=== PATIENT | male | born 1980 | race Caucasian/White ===

== ENCOUNTER 2016-12-08 14:13 | Emergency (ER) | payer MEDICAID ==
[~2016-12-08] VITALS: Ht 165.1 cm; Wt 105.3 kg
[2016-12-08 14:21] VITALS: BP 133/71
[2016-12-08 15:04] LABS: BASOPHILS # (AUTO) 0.1 K/uL (0.00-0.22); BASOPHILS % (AUTO) 1.2 % (0.0-2.0); EOSINOPHILS # (AUTO) 0.2 K/uL (0-0.4); EOSINOPHILS % (AUTO) 2.5 % (0.0-4.0); HEMATOCRIT 42.7 % (36-52); HEMOGLOBIN 13.9 g/dL (12.0-18.0); LYMPHOCYTES # (AUTO) 1.9 K/uL (2.0-11.5); MEAN CORPUSCULAR HEMOGLOBIN 27 pg (27-31); MEAN CORPUSCULAR HGB CONC 33 g/dL (33-37); MEAN CORPUSCULAR VOLUME 83 fL (80-94); MONOCYTES # (AUTO) 0.5 K/uL (0.8-1.0); MONOCYTES % (AUTO) 5.5 % (1.7-9.3); NEUTROPHILS # (AUTO) 5.6 K/uL (1.8-7.7); NEUTROPHILS % (AUTO) 67.8 % (42.2-75.2); PLATELET COUNT (AUTO) 306 K/uL (140-450); RED BLOOD CELL COUNT(AUTO) 5.15 MIL/uL (4.20-6.10); WHITE BLOOD COUNT (AUTO) 8.3 K/uL (4.8-10.8)
[2016-12-08 15:10] LABS: APPEARANCE,URINE CLEAR (CLEAR); BILIRUBIN,URINE NEGATIVE (NEGATIVE); BLOOD, URINE NEGATIVE (NEGATIVE); COLOR,URINE YELLOW (YELLOW); LEUKOCYTE ESTERASE ,URINE NEGATIVE (NEGATIVE); NITRITE, URINE NEGATIVE (NEGATIVE); PROTEIN,URINE NEGATIVE (NEGATIVE); UGLUCOSE NEGATIVE (NEGATIVE); UROBILINOGEN,URINE 0.2 EU/dL (0.2 - 1)
[2016-12-08 15:18] LABS: ANION GAP 12.8 (8-16); CALCIUM 8.5 mg/dL (8.5-10.1); CARBON DIOXIDE 26.2 mmol/L (21-32); CREATININE 0.9 mg/dL (0.7-1.3)
[2016-12-08 15:24] LABS: ALBUMIN 3.6 g/dL (3.4-5.0); TOTAL BILIRUBIN 0.2 mg/dL (0.0-1.0); TOTAL PROTEIN, SERUM 7.8 g/dL (6.4-8.2)
--- NOTE | 2016-12-08 17:07 | NUR ---
PATIENT AMBULATED TO ER BED 4.
--- NOTE | 2016-12-08 17:19 | NUR ---
PATIENT PRESENTS TO ED WITH umbilical hernica pain . PT STATES pain worse when bending over . DENIES N/V/D; SKIN IS PINK/WARM/DRY; AAOX4 WITH EVEN AND STEADY GAIT; LUNGS CLEAR BL; HR EVEN AND REGULAR; PT DENIES ANY FEVER, CP, SOB, OR COUGH AT THIS TIME; PATIENT STATES PAIN OF 10/10 AT THIS TIME; VSS; PATIENT POSITIONED FOR COMFORT; HOB ELEVATED; BEDRAILS UP X2; BED DOWN. ER MD MADE AWARE OF PT STATUS.
--- NOTE | 2016-12-08 17:50 | NUR ---
PATIENT BEING EVALUATED BY DR. HSU.
[2016-12-08] MEDS ORDERED: oxyCODONE/APAP 5/325 MG 1 TAB TAB PO ONE (18:00)
--- NOTE | 2016-12-08 18:19 | NUR ---
PT TO CT
--- NOTE | 2016-12-08 18:27 | NUR ---
PT RETURNED TO BED [address]
--- NOTE | 2016-12-08 18:30 | NUR ---
MEDICATION ADMINISTERED ORDERED.
--- NOTE | 2016-12-08 18:39 | NUR ---
CONTINUES TO WAIT FOR DISPO---PT HOLDING CONVERSATION WITH SPOUSE AT BEDSIDE---NO GRIMACE, NO MOAN NO GUARDING ABD----WILL CONTINUE TO OBSERVE FOR PAIN CONTROL
[2016-12-08 19:21] VITALS: BP 131/81
--- NOTE | 2016-12-08 19:22 | NUR ---
Patient discharged with v/s stable. Written and verbal after care instructions given and explained. Patient alert, oriented and verbalized understanding of instructions. Ambulatory with steady gait. All questions addressed prior to discharge. ID band removed. Patient advised to follow up with PMD. Rx of NORCO/IBUPROFEN given. Patient educated on indication of medication including possible reaction and side effects. Opportunity to ask questions provided and answered.
== END 2016-12-08 19:22 | disposition home or self-care (01) ==
LOC: MED 14:13
DX: K42.9 Umbilical hernia without obstruction or gangrene (principal)
CPT/HCPCS: 36415; 80053; 81003; 82150; 83690; 85025; 99285

== ENCOUNTER 2017-05-11 21:37 | Emergency (ER) | payer MEDICAID ==
[~2017-05-11] VITALS: Ht 165.1 cm; Wt 105.2 kg
[2017-05-11 21:44] VITALS: BP 152/105
--- NOTE | 2017-05-11 21:49 | NUR ---
PT TAKEN TO BED 7
--- NOTE | 2017-05-11 21:50 | NUR ---
PATIENT IS A 36 Y/O MALE WHO PRESENTS TO THE ED C/O COUGH. PT STATES, "I HAVE BEEN COUGHING FOR X3 WEEKS." PT REPORTS 10/10 SHARP UPPER QUADRANT PAIN THAT RADIATES TO THE BACK. PT DENIES CP, SOB, REPORTS NAUSEA/VOMITING X1 DAY DENIES DIARRHEA. PT AAOX4, RR EVEN/UNLABORED, WHEEZES NOTED BILATERALLY. PT REPOSITIONED FOR COMFORT, BED IN LOWEST POSITION. ER MD DR. WILSON NOTIFIED. WILL CONTINUE TO MONITOR.
--- NOTE | 2017-05-11 21:50 | NUR ---
Dr. Gary evaluating patient at bedside.
[2017-05-11] MEDS ORDERED: ALBUTEROL 0.083% 2.5 MG/3 ML NEBU INH ONE (21:55)
[2017-05-11] MEDS ORDERED: predniSONE 20 MG TAB PO ONE (21:55)
--- NOTE | 2017-05-11 21:56 | NUR ---
X-Ray at bedside.
[2017-05-11 22:54] VITALS: BP 149/98
--- NOTE | 2017-05-11 22:54 | NUR ---
Patient discharged with v/s stable. Written and verbal after care instructions given and explained. Patient alert, oriented and verbalized understanding of instructions. Ambulatory with steady gait. All questions addressed prior to discharge. ID band removed. Patient advised to follow up with PMD. Rx of ALBUETEROL AND PREDNISONE given. Patient educated on indication of medication including possible reaction and side effects. Opportunity to ask questions provided and answered.
== END 2017-05-11 22:54 | disposition home or self-care (01) ==
LOC: MED 21:37
DX: J45.909 Unspecified asthma, uncomplicated (principal); R03.0 Elevated blood-pressure reading, without diagnosis of hypertension
CPT/HCPCS: 71010; 94640; 99283; J7512; J7613

== ENCOUNTER 2019-01-06 02:35 | Emergency (ER) | payer MEDICAID ==
[~2019-01-06] VITALS: Ht 167.6 cm; Wt 95.3 kg
[2019-01-06 02:38] VITALS: BP 124/83
--- NOTE | 2019-01-06 02:38 | NUR ---
to bed # 02 ambulatory
[2019-01-06] MEDS ORDERED: KETOROLAC 60 MG/2 ML VIAL IM ONE (02:45)
--- NOTE | 2019-01-06 02:45 | NUR ---
38 YO M BIB SELF PRESENTS TO ED C/O 02/11 LOWER BACK PAIN RADIATING INTO LEFT LEG X 2 DAYS. DENIES N/V, FEVER/CHILLS, PAIN/BURNING WITH URINATION. PT STATES HE MAY HAVE INJURED HIS BACK THIS WEEKEND WHILE TAKING OUT THE TRASH. PT AWAKE, ALERT, CALM, COOPERATIVE. PMH-- DENIES RX-- DENIES
--- NOTE | 2019-01-06 03:00 | NUR ---
Patient discharged with v/s stable. Written and verbal after care instructions given and explained. Patient alert, oriented and verbalized understanding of instructions. Ambulatory with steady gait. All questions addressed prior to discharge. ID band removed. Patient advised to follow up with PMD. Rx of Naprosyn given. Patient educated on indication of medication including possible reaction and side effects. Opportunity to ask questions provided and answered. Discharged by Dr. Crowe.
== END 2019-01-06 03:00 | disposition home or self-care (01) ==
LOC: MED 02:35
DX: S33.5XXA Sprain of ligaments of lumbar spine, initial encounter (principal); J45.909 Unspecified asthma, uncomplicated; K21.9 Gastro-esophageal reflux disease without esophagitis; X58.XXXA Exposure to other specified factors, initial encounter; Y93.89 Activity, other specified; Y92.89 Other specified places as the place of occurrence of the external cause; Y99.8 Other external cause status
CPT/HCPCS: 96372; 99283; J1885; 81025; 96365; 96375; 99284

== ENCOUNTER 2020-07-15 06:00 | Emergency (ER) | payer MEDICAID ==
[~2020-07-15] VITALS: Ht 165.1 cm; Wt 95.3 kg
[~2020-07-15 06:00] MED LIST: CEPH250C16 PO; HYDR-5122 PO
--- NOTE | 2020-07-15 06:04 | NUR ---
TO BED AMBULATORY
--- NOTE | 2020-07-15 06:21 | NUR ---
39 Y/O MALE PRESENTS TO ER WITH C/O LEFT ANKLE PAIN. S/P INJURY "TWIST" X 6 HRS AGO. 03/13 PAIN. "I WAS GOING DOWN THE STAIRS, AND TWISTED MY ANKLE". PT STATES HE IS UNABLE TO PUT PRESSURE ON ANKLE WHEN WALKING. ANKLE IS SLIGHTLY SWOLLEN, AND TTP. NO VISUAL DEFORMITIES NOTED. PEDAL, AND DORSALIS PEDIS PALPABLE, AND REGULAR. DENIES N/V/D, SOB, CHILLS, FEVER, COUGH, HEADACHE. VSS, R/R EQUAL, AND UNLABORED. SIDE RAIL X1, BED IN LOW POSITION, HOB ELEVATED. WILL CONTINUE TO MONITOR. NKDA DENIES PMH
[2020-07-15] MEDS ORDERED: HYDROcodone/APAP 5/325 MG 1 TAB TAB PO ONE (06:30)
[2020-07-15] MEDS ORDERED: HYDROcodone/APAP 5/325 MG 1 TAB TAB ONE (06:31)
--- NOTE | 2020-07-15 06:36 | NUR ---
rad at bedside
--- NOTE | 2020-07-15 07:18 | NUR ---
RECIEVED REPORT FROM EVELYN ALMANZA. TRANSFER OF CARE AT THIS TIME.
--- NOTE | 2020-07-15 07:29 | NUR ---
PT PLACED IN SHORT POST FABIRCATED SPLINT AND WRAPPED WITH X3 3" MEGHAN WRAPS, CMS WNL BEFORE AND AFTER, PT ALSO GIVEN CRUTCHES. PT GIVEN ONE ON ONE INSTRUCTIONS ON PROPER USE OF CRUTCHES, PT DEMENSTRATED PROPER USE OF CRUTCHES AND CRUTCHES ADJUSTED TO PT PROPER SIZE.
--- NOTE | 2020-07-15 07:42 | NUR ---
PT VERBALIZED THAT HE HAS A RIDE HOME FROM POST GILMER NAILS
[2020-07-15 07:59] VITALS: BP 146/100
--- NOTE | 2020-07-15 07:59 | NUR ---
Patient discharged with v/s stable. Written and verbal after care instructions given and explained. Patient alert, oriented and verbalized understanding of instructions. Ambulatory with steady gait. All questions addressed prior to discharge. ID band removed. Patient advised to follow up with PMD. Rx of NORCO, IBUPROFEN given. Patient educated on indication of medication including possible reaction and side effects. Opportunity to ask questions provided and answered.
== END 2020-07-15 07:59 | disposition home or self-care (01) ==
LOC: MED 06:00
DX: S99.812A Other specified injuries of left ankle, initial encounter (principal); K21.9 Gastro-esophageal reflux disease without esophagitis; I10 Essential (primary) hypertension; Z79.899 Other long term (current) drug therapy; X50.9XXA Other and unspecified overexertion or strenuous movements or postures, initial encounter; Y93.89 Activity, other specified; Y92.89 Other specified places as the place of occurrence of the external cause; Y99.8 Other external cause status
CPT/HCPCS: 29515; 73610; 99283

== ENCOUNTER 2021-01-11 06:35 | Emergency (ER) | payer MEDICAID ==
[~2021-01-11] VITALS: Ht 165.1 cm; Wt 105.2 kg
[2021-01-11 06:40] VITALS: BP 133/78
--- NOTE | 2021-01-11 06:40 | NUR ---
TO [facility] AMBULATORY
[2021-01-11] MEDS ORDERED: ACETAMINOPHEN 325 MG TAB PO ONE (07:05)
[2021-01-11] MEDS ORDERED: NAPR-1704 PO (07:09)
--- NOTE | 2021-01-11 07:10 | NUR ---
40 Y/O MALE C/O LT KNEE PAIN S/P WALKING AND HIS LEFT KNEE POPPED , 2 DAYS AGO NOW WITH PAIN, SWELLING. NO TRAUMA NOR INJURY. PT STATES 9/10 SHARP PAIN. MEDHX: HTN NKA
--- NOTE | 2021-01-11 07:47 | NUR ---
Patient discharged with v/s stable. Written and verbal after care instructions given and explained. Patient alert, oriented and verbalized understanding of instructions. Ambulatory with steady gait by prescribed crutches. All questions addressed prior to discharge. ID band removed. Patient advised to follow up with PMD. Rx of Naproxen given. Patient educated on indication of medication including possible reaction and side effects. Opportunity to ask questions provided and answered.
--- NOTE | 2021-01-11 07:50 | NUR ---
APPLIED KNEE IMMOBILIZER TO LEFT KNEE WITHOUT ANY ISSUES. PT DEMONSTRATED PROPER USE OF CRUTCHES
== END 2021-01-11 07:47 | disposition home or self-care (01) ==
LOC: MED 06:35
DX: M25.462 Effusion, left knee (principal); K21.9 Gastro-esophageal reflux disease without esophagitis; I10 Essential (primary) hypertension; Z79.899 Other long term (current) drug therapy; Z98.890 Other specified postprocedural states
CPT/HCPCS: 73562; 99283

== ENCOUNTER 2021-09-02 09:26 | Emergency (ER) | payer MEDICAID ==
[~2021-09-02] VITALS: Ht 170.2 cm; Wt 104.3 kg
[~2021-09-02 09:26] MED LIST changes: +NAPR-1704 PO
[2021-09-02 09:27] VITALS: BP 151/111
[2021-09-02] MEDS ORDERED: ENALAPRIL 10 MG TAB PO ONE (09:40)
[2021-09-02 10:00] VITALS: BP 151/111
--- NOTE | 2021-09-02 10:00 | NUR ---
Patient discharged with v/s stable. Written and verbal after care instructions given and explained. Patient verbalized understanding. Ambulatory with steady gait. All questions addressed prior to discharge. Advised to follow up with PMD.
== END 2021-09-02 10:00 ==
LOC: MED 09:26
DX: I10 Essential (primary) hypertension (principal); K21.9 Gastro-esophageal reflux disease without esophagitis; F15.90 Other stimulant use, unspecified, uncomplicated; Z02.89 Encounter for other administrative examinations; Z90.49 Acquired absence of other specified parts of digestive tract; Z98.890 Other specified postprocedural states; Z79.899 Other long term (current) drug therapy
CPT/HCPCS: 99283

== ENCOUNTER 2021-10-12 07:25 | Emergency (ER) | payer MEDICAID ==
[~2021-10-12] VITALS: Ht 165.1 cm; Wt 110.7 kg
[2021-10-12 07:27] VITALS: BP 147/91
--- NOTE | 2021-10-12 07:32 | NUR ---
PT AMBULATED TO ER BED 3 WITH A STEADY GAIT.
--- NOTE | 2021-10-12 07:38 | NUR ---
41 Y/O MALE C/O PRODUCTIVE COUGH WITH GREEN PHLEGM PRESENT, CONGESTION AND EPISODES OF SOB X5DAYS. SPO2 97% IN TRIAGE. LUNGS ARE CLEAR TO AUSCULTATION THROUGHOUT. PT REPORTS TAKING COLD MEDICINE WITH NO RELIEF, STATES HE HAD A NEGATIVE COVID TEST YESTERDAY. DENIES FEVER/CHILLS. DENIES N/V/D. PMH: HTN NKA
--- NOTE | 2021-10-12 07:39 | NUR ---
DR. DINERO AT PT BEDSIDE FOR FURTHER EVALUATION.
[2021-10-12] MEDS ORDERED: KETOROLAC 30 MG/ML VIAL IM ONE (07:45)
[2021-10-12] MEDS ORDERED: LORATADINE 10 MG TAB PO ONE (07:45)
--- NOTE | 2021-10-12 07:55 | NUR ---
GONZALES THOMAS AND RL Camacho&Arnoldo WALKED TO LAB.
[2021-10-12] MEDS ORDERED: BENZ-301 PO (08:41)
[2021-10-12] MEDS ORDERED: LORA10TA19 PO (08:41)
--- NOTE | 2021-10-12 08:48 | NUR ---
DR. DINERO AT PT BEDSIDE FOR FURTHER RE-EVALUATION.
[2021-10-12 08:56] VITALS: BP 147/91
--- NOTE | 2021-10-12 08:57 | NUR ---
Patient discharged with v/s stable. Written and verbal after care instructions given FOR UPPER RESPIRATORY INFECTION and explained. Patient alert, oriented and verbalized understanding of instructions. Ambulatory with steady gait. All questions addressed prior to discharge. ID band removed. Patient advised to follow up with PMD. Rx of CEPACOL, AND CLARITIN given. Patient educated on indication of medication including possible reaction and side effects. Opportunity to ask questions provided and answered.
== END 2021-10-12 08:56 | disposition home or self-care (01) ==
LOC: MED 07:25
DX: J06.9 Acute upper respiratory infection, unspecified (principal); Z20.822 Contact with and (suspected) exposure to COVID-19; K21.9 Gastro-esophageal reflux disease without esophagitis; I10 Essential (primary) hypertension; Z79.899 Other long term (current) drug therapy
CPT/HCPCS: 87426; 87804; 96372; 99283; J1885